=== PATIENT | female | born 1985 | race Caucasian/White ===

== ENCOUNTER 2018-06-16 18:25 | Emergency (ER) | payer OTHER ==
[~2018-06-16] VITALS: Ht 154.9 cm; Wt 65.9 kg
[2018-06-16 18:59] VITALS: BP 125/76; PULSE 78; RESP 19; Ht 154.9 cm; Wt 65.9 kg
[2018-06-16] MEDS ORDERED: HYDROCODONE/APAP (5/325) TAB PO ONE (21:30)
[2018-06-16] MEDS ORDERED: IBUP800T48 PO (22:27)
--- NOTE | 2018-06-16 22:30 | ERD ---
ER Documentation Chief Complaint Chief Complaint C/O RT ANKLE PAIN AND SWELLING S/P TWISTING IT YESTERDAY AT WORK HPI 32-year-old female who presents with right ankle pain after she twisted it yesterday. She did not fall. She is unable to bear weight secondary to the pain. Has not taken any medication for pain. No head injury or KO. ROS All systems reviewed and are negative except as per history of present illness. Medications Home Meds Active Scripts Ibuprofen* (Motrin*) 800 Mg Tab, 800 MG PO Q6, #30 TAB Prov:IGOR MORROW PA-C 06/16/18 Allergies Allergies: Coded Allergies: No Known Allergy (Unverified , 06/16/18) PMhx/Soc Medical and Surgical Hx: pt denies Medical Hx, pt denies Surgical Hx Hx Alcohol Use: Yes Hx Substance Use: No Hx Tobacco Use: No Smoking Status: Never smoker FmHx Family History: No diabetes Physical Exam Vitals Vital Signs Date Temp Pulse Resp B/P (MAP) Pulse Ox O2 O2 Flow FiO2 Time Delivery Rate 06/16/18 98.3 78 19 125/76 100 18:59 (92) Physical Exam Const: No acute distress Head: Atraumatic Eyes: Normal Conjunctiva ENT: Normal External Ears, Nose and Mouth. Neck: Full range of motion. No meningismus. Resp: Clear to auscultation bilaterally Cardio: Regular rate and rhythm, no murmurs Lower Extremity -right Skin: No laceration Compartments: Soft Motor: Full active range of motion hip/knee/ankle/foot Sensation: Intact to light touch FDWS/MF/LF/P surfaces. Bones: tenderness over lateral malleolus Joints: Swelling and ecchymosis over the lateral malleolus Pulses/Perfusion: 2+ DP, Capillary refill < 2 seconds Results 24 hrs Current Medications Medications Dose Sig/Hollis Start Time Status Last (Trade) Ordered Route PRN Stop Time Admin Dose Reason Admin 1 tab ONCE ONCE 06/16/18 DC 06/16/18 Acetaminophen PO 21:30 06/16/18 21:25 / 21:31 Hydrocodone Bitart (Antigo (5/325)) Procedures/MDM 32-year-old female has ankle pain after twisting injury that occurred yesterday. She is neurovascular intact. She was given Antigo for pain. X-rays are negative. Rudi wrap and crutches applied. She is given prescription for ibuprofen and recommended resting ice compression elevation at home. Patient counseled regarding my diagnostic impression and care plan. Prior to discharge all questions answered. Pt agrees with treatment plan and understands strict return precautions. Pt is instructed to follow up with primary care provider within 24-48 hours. Precautionary instructions provided including instructions to return to the ER if not improving or for any worsening or changing symptoms or concerns. Departure Diagnosis: Primary Impression: Ankle pain Condition: Stable Patient Instructions: Sprain, Ankle, With X-Ray Additional Instructions: Call your primary care doctor TOMORROW for an appointment during the next 1-2 days.See the doctor sooner or return here if your condition worsens before your appointment time. IGOR MORROW PA-C Jun 16, 2018 22:30
== END 2018-06-16 23:00 | disposition home or self-care (01) ==
LOC: FTE 18:25
DX: S90.01XA Contusion of right ankle, initial encounter (principal); X50.1XXA Overexertion from prolonged static or awkward postures, initial encounter; Y92.89 Other specified places as the place of occurrence of the external cause
CPT/HCPCS: 73610; Z7502; Z7610